=== PATIENT | female | born 1990 | race Caucasian/White ===

== ENCOUNTER 2017-09-12 18:17 | Observation (INO) | payer OTHER | END 2017-09-12 20:47 | disposition home or self-care (01) | LOC: FLD 18:17 | PROVIDERS: ADMIT Obstetrics & Gynecology; ATTEND Obstetrics & Gynecology | DX: Z03.89 Encounter for observation for other suspected diseases and conditions ruled out (principal); Z3A.30 30 weeks gestation of pregnancy | CPT/HCPCS: 59025; G0378 ==

== ENCOUNTER 2017-11-14 03:07 | Inpatient (IN) | payer OTHER ==
[2017-11-14] MEDS ORDERED: LIDOCAINE 1% 300 MG/30 ML SDV SC PRN (05:40)
[2017-11-14] MEDS ORDERED: TERBUTALINE SULFATE 1 MG/ML VIAL IV PRN (05:40)
[2017-11-14] MEDS ORDERED: MISOPROSTOL 200 MCG TAB PR PRN (05:40)
[2017-11-14] MEDS ORDERED: EPSOM SALT 454 GM TP PRN (05:40)
[2017-11-14] MEDS ORDERED: OLIVE OIL 118 ML BTL MISC PRN (05:40)
[2017-11-14] MEDS ORDERED: IBUPROFEN 600 MG TAB PO PRN (05:40)
[2017-11-14] MEDS ORDERED: OXYTOCIN/RINGERS LACTATE 1,000 ML IV PRN (05:40)
[2017-11-14] MEDS ORDERED: LR 1,000 ML IV PRN (05:40)
[2017-11-14] MEDS ORDERED: OXYTOCIN 10 UNIT/ML VIAL ONE (06:12)
[2017-11-14] MEDS ORDERED: TERBUTALINE SULFATE 1 MG/ML VIAL ONE (06:12)
[2017-11-14] MEDS ORDERED: OLIVE OIL 118 ML BTL ONE (06:12)
[2017-11-14] MEDS ORDERED: AMMONIA AROMATIC 1 EACH AMP IH ONE (06:12)
[2017-11-14] MEDS ORDERED: LIDOCAINE 1% 300 MG/30 ML SDV ONE (06:12)
[2017-11-14] MEDS ORDERED: MISOPROSTOL 200 MCG TAB ONE (06:12)
[2017-11-14 06:25] LABS: PLATELET COUNT 206 10^3/uL (150-400)
[2017-11-14] MEDS ORDERED: NARCOTIC DRIP BAG-TOTAL ALL TYPES IV PRN (06:49)
[2017-11-14] MEDS ORDERED: FENT2MCG/ML&BUP0.1% 1 EA, fentaNYL 200 MCG, BUPIVACAINE 0.5% 20 ML in NS 100 ML IV SCH (06:49)
[2017-11-14] MEDS ORDERED: ONDANSETRON 4 MG/2 ML VIAL IVP PRN (08:09)
[2017-11-14] MEDS ORDERED: PHENYLEPHRINE HCL 100 MCG/ML SYR IVP PRN (08:09)
--- NOTE | 2017-11-14 08:09 | PREANESOB ---
Obstetric Pre-Anesthesia Info - General Info Proposed Procedure: Labor (lumbar) epidural for vaginal deliver NPO Start Time: 07:00 : 2 Para: 1 RICCARDO: 11/17/17 Gestational Age: 39 week(s) and 4 day(s) - Info Status: Full Term Monitors: External FHR Baseline (bpm): 120 FHR Pattern: Reassuring - Labor Status Cervical Dilation per last OB SVE: 5 PIH: No Magnesium Sulfate in Use: No Indications for Labor Analgesia: Pain Control Labor Epidural: Proposed Anesthesia ROS: Labor contraction pain and mild cough only positive review of systems. Allergies/Adverse Reactions: Allergy/AdvReac Type Severity Reaction Status Date / Time No Known Allergies Allergy Unverified 09/12/17 18:30 Home Medications: Medication Instructions Recorded Ascorbic Acid [Vitamin C] 1 tab PO DAILY 09/12/17 1 tab PO DAILY 09/12/17 Visit Medications: Generic Name Dose Route Start Last Admin Trade Name Freq PRN Reason Stop Dose Admin Lactated Ringer's 1,000 mls @ 0 mls/hr 11/14/17 05:40 Lr IV 11/15/17 05:39 PRN PRN SEE PROTOCOL CONDITIONS Protocol Per Protocol Oxytocin/Lactated Ringer's 1,000 mls @ 125 mls/hr 11/14/17 05:40 Pitocin 20 Units/Lr (Premix) IV PRN PRN Post bleeding Fentanyl/Bupivacaine HCl 1 ea/ 100 mls @ mls/hr 11/14/17 06:49 Fentanyl 200 mcg/ Bupivacaine IV 11/24/17 06:48 HCl 20 ml/ Sodium Chloride AD MAXIMILIAN As Directed Ibuprofen 600 mg 11/14/17 05:40 Motrin PO ONCE PRN post , pain Lidocaine HCl 300 mg 11/14/17 05:40 Lidocaine Hcl 1% SC 05/13/18 05:39 ONCE PRN episiotomy Magnesium Sulfate 454 gm 11/14/17 05:40 Epsom Salt TP 05/13/18 05:39 Q1H PRN perineal discomfort Miscellaneous Medication 1 ea 11/14/17 06:49 Narcotic Drip-Total All Types IV 05/13/18 06:48 PRN PRN Pyxis removal Misoprostol 800 - 1,000 mcg 11/14/17 05:40 Cytotec IN ONCE PRN Vaginal Atony/Bleeding Whitwell Oil 118 ml 11/14/17 05:40 Sweet Oil MISC 05/13/18 05:39 ONCE PRN perineal massage Terbutaline Sulfate 0.25 mg 11/14/17 05:40 Brethine IV 05/13/18 05:39 ONCE PRN Tachysystole Discontinued Medications Generic Name Dose Route Start Last Admin Trade Name Henrique PRN Reason Stop Dose Admin Ammonia (Aromatic Spirit) Confirm 11/14/17 06:12 Ammonia Aromatic Administered 11/14/17 06:13 Dose 1 each IH .STK-MED ONE Lidocaine HCl Confirm 11/14/17 06:12 Lidocaine Hcl 1% Administered 11/14/17 06:13 Dose 300 mg .ROUTE .STK-MED ONE Misoprostol Confirm 11/14/17 06:12 Cytotec Administered 11/14/17 06:13 Dose 1,000 mcg .ROUTE .STK-MED ONE Whitwell Oil Confirm 11/14/17 06:12 Sweet Oil Administered 11/14/17 06:13 Dose 118 ml .ROUTE .STK-MED ONE Oxytocin Confirm 11/14/17 06:12 Pitocin Administered 11/14/17 06:13 Dose 40 unit .ROUTE .STK-MED ONE Terbutaline Sulfate Confirm 11/14/17 06:12 Brethine Administered 11/14/17 06:13 Dose 1 mg .ROUTE .STK-MED ONE - Anesthesia History Response to Local Anesthetics: Normal Anesthesia & Operative History: No Prior Problems Family Anesthesia History: Negative - Social History Substance Use/Abuse: Denies - Vital Signs Height/Weight (Nursing): Height 157.48 cm Weight 66.224 kg - Focused Exam Neck exam: FROM Mallampati Score: Class 2 Mouth exam: normal dental/mouth exam Pulmonary: no respiratory distress Cardiovascular: regular rate and rhythym Labs: 11/14/17 06:07 Patient ABO/Rh O POSITIVE 11/14/17 06:07 - Plan Anesthetic Plan: Continuous Labor (Lumbar) epidural Consent Signed and on Chart: Yes Patient/Guardian Understands and Agrees to Plan: Yes Urgent/Emergent Case: John Paul delgado completed preop but documented later for safe timely pt care (Full interview & exam conducted, epidural placed and then documentation of patient interview and examination done.)
--- NOTE | 2017-11-14 08:20 | POSTANESTH ---
Post Anesthetic Evaluation Cardiovascular Status: Normal, Stable, Similar to Pre-Op Cond Respiratory Status: Normal, Stable, Similar to Pre-op Cond. Level of Consciousness/Mental Status: Can Participate in Eval, Alert and Oriented Pain Control: Adequate, Prn Tx Ordered Nausea/Vomiting Control: Adequate, Prn Tx Ordered Complications Possibly Related to Anesthesia: None Noted (Patient tolerated placement of labor epidural well. No complications.)
[2017-11-14] MEDS ORDERED: LR 500 ML IV SCH (08:30)
[2017-11-14] MEDS ORDERED: fentaNYL 2MCG/ML/BUP 0.1% RTU 100 ML EP SCH (08:30)
--- NOTE | 2017-11-14 11:58 | OBPROG ---
Labor Progress Note Assessment/Plan: Assessment: 27 y/o @ 39 4/7 wks in active labor Plan: s/p epidural, pt is comfortable Change noted on cervical exam despite irreg ctx's, now /-2 AROM done and blood tinged fluid noted FHTs - Cat I tracing now; had prolonged decel x 1 with marcela to 90 bpm x 3 min with return to baseline Anticipate 11/14/17 11:53 Subjective/Intrapartum Course: 11/14/17 11:58 Pt is comfortable, s/p epidural Objective: 11/14/17 06:07 Patient ABO/Rh O POSITIVE 11/14/17 06:07 - SVE Dilation (cm): 7 Effacement (%): 90 Station: -2 Membranes: AROM Amniotic Fluid Color: Bloody - Contraction Pattern Assessment Current Contraction Pattern: Irregular - FHR Assessment Thapa FHR (bpm): 140 FHR Pattern Variability: Moderate FHR Category: 1 - Procedures Non-surgical Procedures: Amniotomy - AP Antepartum Course: 11/14/17 12:01 IUP @ 39 4/7 weeks who presents in active labor; GBS negative; h/o PTD at 36 3/ 7 wks IOL secondary to oligo; KALEB at 30 weeks wnl Oxytocin Orders Assessment - Pre-Induction/Augmentation Assessment Gestational Age: 39 week(s) and 4 day(s) ICD10 Worksheet Patient Problems: Problems Problem Status Onset Normal labor Acute - ICD10 Problem Qualifiers (1) Normal labor
--- NOTE | 2017-11-14 13:12 | GHP ---
[f rep st] HISTORY AND PHYSICAL DATE OF ADMISSION: 11/14/2017 ADMITTING DIAGNOSES: 1. Intrauterine at 39 weeks and 4 days. 2. Active labor. HISTORY OF PRESENT ILLNESS: Patient is a 27-year-old 2, para 0-1-0-1, at 39-4/7 weeks with estimated due date 11/17/2017, by LMP 02/09/2017, and consistent with first trimester ultrasound at 6 weeks. Patient presents to Labor and Delivery with painful contractions. Patient states movement is good. Denies any leakage of fluid or bleeding at this time. On admission, she was found to be 3 cm dilated and then was up ambulating and 2 hours later, progressed to 5 cm and more uncomfortable. Patient desires an epidural. Patient has good care with [facility], and presented in her first trimester. The is complicated by history of delivery with G1 at 36 weeks and 3 days; she was induced secondary to oligohydramnios. The patient has a history of depression with G1. On initial Ob visit , pap was obtained and abnormal showing LSIL. She missed appointment for a colposcopy, but Re-Pap was collected at 20 weeks and was normal, as well as a negative HPV. Ultrasound done at 30 weeks revealed an estimated weight 57 percentile with an KALEB of 16 cm. Patient developed anemia of , and is tolerating iron. She received Tdap. GBS culture is negative. PAST OB HISTORY: In August 2013, she delivered a viable female infant at 36 weeks 3 days weighing 5 pounds 11 ounces. She was induced secondary to oligohydramnios. 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 Cycles every 22 days for 4 days. LMP 02/09/2017. Patient does have a history of abnormal Pap smear in the ., LSIL and re-Pap was negative. Negative HPV. Patient denies exposure to any sexually transmitted diseases. CURRENT MEDICATIONS: Include vitamins, iron. ALLERGIES: No known drug allergies. PAST MEDICAL HISTORY: Ulcers, acid reflux in high school, anxiety, depression. 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 FAMILY HISTORY: Noncontributory. SOCIAL HISTORY: Patient is . She lives with her and their daughter. Denies any alcohol, tobacco, illicit drug use currently. REVIEW OF SYSTEMS: Ten point review of systems negative. Pertinent positives noted in HPI. LABS: Patient is O positive, antibody negative. RPR nonreactive. Hepatitis B surface antigen negative. HIV negative. Rubella immune. H and H 12.2 and 36. 1-hour Glucola 155. Abnormal Pap smear, LSIL. No colpo done. Followup Pap smear negative, negative HPV. GBS culture is negative. EXAM: On admission: VITAL SIGNS: Stable. Patient is afebrile. GENERAL: Well -nourished, well-developed female, alert and oriented x3. CARDIOVASCULAR: Regular rate and rhythm. SKIN: Warm. Normal color. No rash. LUNGS: Clear to auscultation bilaterally. ABDOMEN: Soft, nontender, gravid. PELVIC: 5 cm, 80% effaced, -2 station, intact. EXTREMITIES: Normal to inspection without calf tenderness or edema. HEART TONES: Category 1 strip, with baseline 140 beats per minute. Positive accelerations. No decelerations. Moderate variability. On toco, she is regularly jose. ASSESSMENT/PLAN: Patient is a 27-year-old 2, para 0-1-0-1, at 39-4/7 weeks who presents in active labor. 1. Admit to Labor and Delivery for expectant management. 2. GBS culture is negative, no prophylactic antibiotics are needed. 3. Patient desires an epidural at this time. 4. heart tones category 1. 5. Anticipate spontaneous vaginal delivery. /[id number]/MODL MTDD
[2017-11-14] MEDS ORDERED: fentaNYL 100 MCG/2 ML INJ ONE (13:34)
[2017-11-14] MEDS ORDERED: HYDROCODONE/APAP 5/325 TAB PO PRN (17:34)
[2017-11-14] MEDS ORDERED: HYDROCORTISONE 0.5% CREAM TP PRN (17:34)
[2017-11-14] MEDS ORDERED: SIMETHICONE 80 MG TAB CHEW PO PRN (17:34)
[2017-11-14] MEDS ORDERED: DOCUSATE SODIUM 100 MG CAP PO PRN (17:34)
--- NOTE | 2017-11-14 17:36 | OBDEL ---
Info Type: Vaginal Presentation at Delivery: Vertex (ROP) L&D Analgesia/Anesthesia Type: Epidural GBS+: No Intrapartum Medications: Generic Name Dose Route Start Last Admin Trade Name Henrique PRN Reason Stop Dose Admin Lactated Ringer's 1,000 mls @ 0 mls/hr 11/14/17 05:40 11/14/17 11:49 Lr IV 11/15/17 05:39 1,000 mls PRN PRN Administration SEE PROTOCOL CONDITIONS Protocol Per Protocol - Hospital Course Intrapartum: 11/14/17 11:58 Pt is comfortable, s/p epidural Indications for Delivery: Spontaneous Labor Vaginal Delivery - Delivery Provider Delivery Physician/CNM: Lyndsay Balderrama - Labor and Delivery Onset of Contractions Date: 11/14/17 Onset of Contractions Time: 01:30 Onset of Contractions Type: Spontaneous Rupture of Membranes Date: 11/14/17 Rupture of Membranes Time: 11:30 Rupture of Membranes Type: Artificial Amniotic Fluid Color: Bloody Dilation Complete Date: 11/14/17 Dilation Complete Time: 14:30 Placenta Delivery Date: 11/14/17 Placenta Delivery Time: 17:10 Total Hours of Labor: 15 Non-surgical Procedures: Amniotomy Laceration: Other (Specify) (Perineal and R vaginal wall abrasions - no repair needed) Vaginal Sponge Count Correct: Yes Vaginal Needle Count Correct: Yes Vaginal Sweep Performed: Yes EBL: 300 cc Delivery Events: None [place] Data RICCARDO: 11/17/17 Gestational Age: 39 week(s) and 4 day(s) Thapa Delivery Date: 11/14/17 Delivery Time: 17:05 Sex of Infant: Male Score (1 Min): 7 Score (5 Min): 9 ICD10 Worksheet Patient Problems: Problems Problem Status Onset Normal labor Acute (spontaneous vaginal delivery) Acute - ICD10 Problem Qualifiers (1) Normal labor (2) (spontaneous vaginal delivery)
[2017-11-14] MEDS: IBUPROFEN 600 MG TAB PO PRN (17:52)
--- NOTE | 2017-11-14 18:00 | PDMN ---
Medical Necessity Medical necessity: C/M review: Patient meets INPT criteria under [facility] [place] [facility] S-[id number] Vaginal Delivery: viable male . MD anticipates > 2 MN LOS for ongoing med nec for eval and TX of above.
[2017-11-15] MEDS: IBUPROFEN 600 MG TAB PO PRN ×3 (00:38→14:03)
[2017-11-15 09:46] VITALS: BP 103/69
--- NOTE | 2017-11-15 10:34 | POSTANESTH ---
Post Anesthetic Evaluation Cardiovascular Status: Normal, Stable, Similar to Pre-Op Cond Respiratory Status: Normal, Stable, Similar to Pre-op Cond. Level of Consciousness/Mental Status: Can Participate in Eval, Alert and Oriented Pain Control: Adequate, Prn Tx Ordered Nausea/Vomiting Control: Adequate, Prn Tx Ordered Complications Possibly Related to Anesthesia: None Noted (Mom evaluate post delivery day #1. Patient doing well. Up out of bed, walking, no signs of PDPH , able to urinate.)
--- NOTE | 2017-11-15 12:59 | OBPP ---
Progress Note Assessment/Plan: Assessment: ppd# 1 s/p uncomplicated post course breast feeding Plan: routine post care and discharge instructions 11/15/17 12:57 Subjective/ Course: 11/15/17 12:58 patient is doing great. pain is well controlled normal lochia. denies headache and changes in vision. working on breast feeding. ambulating. voiding without difficulty. ready to go home. mood stable. Objective: 11/14/17 06:07 Patient ABO/Rh O POSITIVE 11/14/17 06:07 Temp Pulse Resp BP Pulse Ox 36.7 C 80 16 103/69 96 11/15/17 08:00 11/15/17 08:00 11/15/17 08:00 11/15/17 08:00 11/14/17 21:20 Uterine Position/Fundal Height: Umbilicus -2 Physical Exam - Physical Exam Neck: non-tender, full range of motion, supple Respiratory: chest non-tender, lungs clear, normal breath sounds Cardiac/Chest: normal peripheral pulses, regular rate, rhythm Abdomen: normal bowel sounds, non-tender, other (fundus firm and non tender) Extremities: normal range of motion, non-tender, normal inspection, normal capillary refill Skin: normal color, warm/dry Neuro/Psych: no motor/sensory deficits, alert, normal mood/affect, oriented x 3
--- NOTE | 2017-11-15 13:03 | OBGCSDC ---
General Delivery Information - General Info : 2 Para: 3 Abortions: 0 Type: Vaginal L&D Analgesia/Anesthesia Type: Epidural Admission Date: 11/14/17 Labs: Patient ABO/Rh O POSITIVE 11/14/17 06:07 Hct 36.5 % (38.0-47.0) L 11/14/17 06:07 - Hospital Course Antepartum: 11/14/17 12:01 IUP @ 39 4/7 weeks who presents in active labor; GBS negative; h/o PTD at 36 3/ 7 wks IOL secondary to oligo; KALEB at 30 weeks wnl Intrapartum: 11/14/17 11:58 Pt is comfortable, s/p epidural : 11/15/17 12:58 patient is doing great. pain is well controlled normal lochia. denies headache and changes in vision. working on breast feeding. ambulating. voiding without difficulty. ready to go home. mood stable. Vaginal - Delivery Provider Delivery Physician/CNM: Lyndsay Balderrama - Diagnosis Labor: Spontaneous Rupture of Membranes Type: Artificial Amniotic Fluid Color: Bloody Laceration: Other (Specify) (Perineal and R vaginal wall abrasions - no repair needed) Delivery Events: None - Procedures Non-surgical Procedures: Amniotomy - Delivery Non-surgical Procedures: Amniotomy EBL: 300 cc Data RICCARDO: 11/17/17 Gestational Age: 39 week(s) and 5 day(s) Thapa Delivery Date: 11/14/17 Delivery Time: 17:05 Sex of Infant: Male [place] Weight (gm): 3168 g Score (1 Min): 7 Score (5 Min): 8 Discharge Information - Discharge Information Condition: Good Instruction/Follow Up: Four Weeks (mood check ), Six Weeks (post visit)
== END 2017-11-15 17:50 | disposition home or self-care (01) | DRG 775 ==
LOC: FLD 03:07 → FOB 19:55
PROVIDERS: ADMIT Obstetrics & Gynecology; ATTEND Obstetrics & Gynecology
PROC: 10907ZC Drainage of Amniotic Fluid, Therapeutic from Products of Conception, Via Natural or Artificial Opening (ICD-10-PCS; principal; 2017-11-14)
PROC: 10E0XZZ Delivery of Products of Conception, External Approach (ICD-10-PCS; principal; 2017-11-14)
DX: O80 Encounter for full-term uncomplicated delivery (principal); Z87.51 Personal history of pre-term labor; Z86.59 Personal history of other mental and behavioral disorders; Z37.0 Single live birth; Z3A.39 39 weeks gestation of pregnancy
CPT/HCPCS: J2370; J2590; J3010; J3105